=== PATIENT | female | born 1950 | race Caucasian/White ===

== ENCOUNTER 2020-10-15 09:34 | Inpatient (IN) ==
[2020-10-15] MEDS ORDERED: ONDANSETRON 4 MG/2 ML VIAL IV STA (09:53)
[2020-10-15] MEDS ORDERED: HYDROmorphone 2 MG/1 ML VIAL IV STA (09:53)
[2020-10-15 10:11] LABS: Basophils % 0.5 % (0.0-0.8); Eosinophils # 0.1 10*3/uL (0.0-0.87); Eosinophils % 1.2 % (0.00-10.9); Hematocrit 44.6 VOL% (35.7-47.0); Hemoglobin 14.6 GM/DL (12.0-16.0); Immature Granulocytes % 0.3 %; Immature Granulocytes Absolute 0.02 #; Lymphocytes # 1.7 10*3/uL (1.4-4.0); Mean Corpuscular HGB Conc 32.7 GM/DL (32-36); Mean Corpuscular Volume 85.6 FL (87-102); Mean Platelet Volume 9.1 FL (9.6-12.0); Monocytes % 7.2 % (1.7-12.7); Neutrophils % 61.8 % (38.7-73.9); Platelet Count 351 T/CUMM (130-400); Red Blood Count 5.21 MC/CUMM (3.8-5.5); Red Cell Distribution Width 13.6 % (9.3-17.3); White Blood Count 5.8 T/CUMM (4-12)
[2020-10-15 10:24] LABS: PT Patient Result 11.4 SECS (10.5-12.0); Partial Thromboplastin Time 25.5 SECS (23.9-33.8)
[2020-10-15 10:30] LABS: Alanine Aminotransferase < 6 U/L (13-56); Albumin 3.3 G/DL (3.4-5.0); Alkaline Phosphatase 143 U/L (45-117); Aspartate Amino Transferase 9 U/L (0-37); Bilirubin,Total < 0.39 MG/DL (0.2-1.0); Blood Urea Nitrogen 10 MG/DL (7-18); Calcium 9.5 MG/DL (8.5-10.1); Carbon Dioxide 31 MMOL/L (21-32); Estimated Glom Filtration Rate 75 ML/MIN; Glucose 117 MG/DL (74-106); Osmolality,Calculated 276.5 MOS/KG (273-304); Potassium 3.6 MMOL/L (3.5-5.1); Sodium 139 MMOL/L (136-145); Total Protein 7.1 G/DL (6.4-8.2)
[2020-10-15] MEDS ORDERED: cefTRIAXone 1,000 MG in SODIUM CHLORIDE 0.9% 100 ML IV STA (10:32)
[2020-10-15 10:44] LABS: Bilirubin,Urine Negative (Negative); Blood, Urine Small mg/dL (Negative); Glucose,Urine (UA) Negative (Negative); Ketones,Urine Negative (Negative); Mucus,Urine Many /LPF (Occasional); Nitrite,Urine Negative (Negative); Protein,Urine >=500 MG/DL; RBC,Urine 60 /HPF (0-4); Urine Appearance CLOUDY (Clear); Urine Color Yellow (Yellow); Urine Specific Gravity 1.019 (1.001-1.035); Urine Urobilinogen < 2.0 EU/DL (0.2-1.0)
[2020-10-15 10:58] LABS: Barbiturates Screen,Urine Negative (Negative); Benzodiazepines Screen,Urine Negative (Negative); Cannabinoid Screen,Urine Negative (Negative); Opiate Screen,Urine Negative (Negative); Phencyclidine Screen,Urine Negative (Negative)
[2020-10-15] MEDS ORDERED: ONDANSETRON 4 MG/2 ML VIAL IV PRN (11:42)
[2020-10-15] MEDS ORDERED: DEXTROSE 50% 25 GM/50 ML VIAL IV PRN (11:42)
[2020-10-15] MEDS ORDERED: HYDROmorphone 2 MG/1 ML VIAL IV PRN (11:42)
[2020-10-15] MEDS ORDERED: GLUCAGON 1 MG VIAL IM PRN (11:42)
[2020-10-15] MEDS: DEXTROSE 5% NACL 0.45% 1,000 ML IV SCH (14:13)
[2020-10-15] MEDS: CARBIDOPA/LEVODOPA 25-100 MG TABLET PO SCH ×2 (16:05→20:08)
[2020-10-15] MEDS ORDERED: ENOXAPARIN 30 MG/0.3 ML SYRINGE SUBCUT SCH (18:30)
[2020-10-15] MEDS ORDERED: HALOPERIDOL 1 MG TABLET PO SCH (21:00)
[2020-10-16 05:21] LABS: Basophils % 0.6 % (0.0-0.8); Eosinophils # 0.1 10*3/uL (0.0-0.87); Hematocrit 39.9 VOL% (35.7-47.0); Immature Granulocytes % 0.3 %; Immature Granulocytes Absolute 0.02 #; Lymphocytes # 1.9 10*3/uL (1.4-4.0); Lymphocytes % 25.8 % (21.3-54.2); Mean Corpuscular HGB Conc 32.6 GM/DL (32-36); Mean Corpuscular Volume 86.6 FL (87-102); Mean Platelet Volume 9.6 FL (9.6-12.0); Neutrophils % 63.3 % (38.7-73.9); Platelet Count 296 T/CUMM (130-400); Red Blood Count 4.61 MC/CUMM (3.8-5.5); Red Cell Distribution Width 13.3 % (9.3-17.3); White Blood Count 7.2 T/CUMM (4-12)
[2020-10-16 05:51] LABS: Osmolality,Calculated 284.8 MOS/KG (273-304); Potassium 4.2 MMOL/L (3.5-5.1)
[2020-10-16] MEDS: DEXTROSE 5% NACL 0.45% 1,000 ML IV SCH (06:42)
[2020-10-16] MEDS ORDERED: cefTRIAXone 1,000 MG in SODIUM CHLORIDE 0.9% 100 ML IV SCH (09:00)
[2020-10-16] MEDS ORDERED: SERTRALINE 25 MG TABLET PO SCH (09:00)
[2020-10-16] MEDS: CARBIDOPA/LEVODOPA 25-100 MG TABLET PO SCH (09:16)
[2020-10-16 11:52] VITALS: BP 131/97
== END 2020-10-16 13:15 | DRG 535 ==
LOC: EDBD → EDUNIT# → N.ED 09:34 → SUATTDRO 11:31 → N.EDINP 11:31 → N.3E 14:43
PROVIDERS: ADMIT Hospitalist; ATTEND Internal Medicine